=== PATIENT | female | born 1995 | race Two or more races ===

== ENCOUNTER 2023-03-01 10:03 | Emergency (ER) | payer MEDICAID, OTHER ==
[~2023-03-01] VITALS: Ht 165.1 cm; Wt 60.0 kg
[2023-03-01 12:40] LABS: Urine Bacteria NONE SEEN /hpf (None Seen); Urine Blood Negative /uL (Negative); Urine Clarity HAZY (Clear); Urine Color Yellow (Yellow); Urine Mucus FEW (None Seen); Urine Protein, UAD Negative (Negative); Urine Urobilinogen Normal (Negative); Urine WBC 14 /hpf (0 - 5); Urine pH 5.5 (5.0-8.0)
[2023-03-01] MEDS ORDERED: predniSONE 20 MG TAB PO ONE (15:00)
[2023-03-01 15:36] VITALS: BP 142/92; PULSE 100; RESP 17; TEMP 98; O2SAT 99
[2023-03-01] MEDS ORDERED: NITR-87 PO (15:44)
[2023-03-01] MEDS ORDERED: PRED20TA2 PO (15:44)
== END 2023-03-01 15:58 | disposition home or self-care (01) ==
LOC: ER 10:03
DX: G51.0 Bell's palsy (principal); N39.0 Urinary tract infection, site not specified
CPT/HCPCS: 70450; 81001; 81025; 99284; J7512